=== PATIENT | male | born 1955 | race Caucasian/White ===

== ENCOUNTER 2021-10-25 09:34 | Emergency (ER) | payer BC, SELFPAY ==
--- NOTE | ~2021-10-25 | XR_ITS ---
EXAMINATION: XR foot RT min 3V DATE: 10/25/2021 09:56 INDICATION: Right foot pain TECHNIQUE: Dorsoplantar, lateral, and 2 oblique views of the right foot were obtained. COMPARISON: None. FINDINGS: Bone alignment is normal. There is no fracture. Heterotopic ossification projecting lateral to the calcaneus likely reflects an accessory ossicle. 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 The soft tissues are unremarkable. Posterior and plantar calcaneal enthesophytes are noted. IMPRESSION: 1. No acute osseous abnormality. Reviewed, dictated and finalized at location B.
--- NOTE | 2021-10-25 09:38 | ED.LOWEXIN ---
HPI - Extremity Injury (Lower) General Chief Complaint: Extremity Injury, Lower Stated Complaint: Right foot pain Time Seen by Provider: 10/25/21 09:38 Source: patient Mode of arrival: ambulatory Limitations: no limitations History of Present Illness HPI Narrative: Mr. Wesley is a 66-year-old male patient presenting to the clinic today with complaints of right mid lateral foot pain x1 day. He reports he was walking to the car from his granddaughter's soccer game last night and felt pain to the dorsal mid lateral foot. Reports that it felt as though it exploded. He denies any known injury. States he was wearing tennis shoes as he has been mostly wearing sandals over the summer and yesterday was her first day for tennis shoes for him. Related Data Home Medications Medication Instructions Recorded Confirmed amlodipine 10 mg tablet mg 10/25/21 atorvastatin 20 mg tablet mg 10/25/21 famotidine 40 mg tablet mg 10/25/21 fluoxetine 20 mg capsule mg 10/25/21 gabapentin 100 mg capsule mg 10/25/21 insulin glargine U-300 conc 300 unit subcut 10/25/21 unit/mL (3 mL) subcutaneous pen (Toujeo Max U-300 SoloStar) lisinopril 20 tablet 10/25/21 mg-hydrochlorothiazide 12.5 mg tablet metformin 500 mg tablet,extended mg PO 10/25/21 release 24 hr omeprazole 40 mg capsule,delayed mg 10/25/21 release omeprazole 40 mg capsule,delayed mg 10/25/21 release Allergies Allergy/AdvReac Type Severity Reaction Status Date / Time No Known Allergies Allergy Verified 10/25/21 09:50 Review of Systems Review of Systems: Pertinent positives per HPI. Patient denies any fever, chills, rash, headache, visual changes, dizziness, cough, runny nose, sore throat, shortness of breath, chest pain, palpitations, nausea, vomiting, diarrhea, constipation, abdominal pain, or any urinary issues. PMFSH Comments At the time of my signature, I reviewed and agree with the nursing past medical, surgical, social, and family history. There is no relevant family history pertinent to the patient complaint. Exam Narrative: General: Well-developed, well nourished, in no apparent distress Head: Normocephalic, atraumatic. Cardio: Regular rate and rhythm, s1 and s2 normal, no murmur appreciated. Resp: Clear to auscultation bilaterally, no rhonchi, rales, wheezing or rubs. Musculoskeletal: No deformity, tender to palpation over the proximal lateral mid, grossly normal range of motion, muscle strength strong and equal, peripheral pulse strong, no edema, no cyanosis, normal gait and station Course Course Emergency Course: Portions of this record may have been created with voice recognition software. Level of Care: Express Care Visit Vital Signs Vital signs: Vital Signs Temperature 36.0 C L 10/25/21 09:41 Pulse Rate 81 10/25/21 09:41 Respiratory Rate 16 10/25/21 09:41 Blood Pressure 154/77 H 10/25/21 09:41 Pulse Oximetry 98 10/25/21 09:41 Oxygen Delivery Room Air 10/25/21 09:41 Temperature 36.0 C L 10/25/21 09:41 Pulse Rate 81 10/25/21 09:41 Respiratory Rate 16 10/25/21 09:41 Blood Pressure 154/77 H 10/25/21 09:41 Pulse Oximetry 98 10/25/21 09:41 Oxygen Delivery Room Air 10/25/21 09:41 Vital signs reviewed MDM - Extremity Injury (Lower) MDM Narrative Medical decision making narrative: At the time of visit patient is resting comfortably on the exam table x-ray was performed and shows no fracture or malalignment of the right foot. Does have some spurring and arthritis noticed. Supportive measures were discussed with the patient he voiced understanding of discharge instructions and agrees to treatment plan. Imaging Data Radiologist's impression: Close Foot X-Ray (Signed) Marck Jacob - 10/25/21 Launch?[facility] [address] [email or web address] [address] XRay Report Signed Patient: Jonas Wesley : 1955
[2021-10-25 09:41] VITALS: BP 154/77; PULSE 81; RESP 16; TEMP 36; O2SAT 98
== END 2021-10-25 10:21 | disposition home or self-care (01) ==
PROVIDERS: Emergency Provider Nurse Practitioner Family; PCP Hospitalist
DX: M19.071 Primary osteoarthritis, right ankle and foot (principal); M77.31 Calcaneal spur, right foot; E78.00 Pure hypercholesterolemia, unspecified; I10 Essential (primary) hypertension; E11.9 Type 2 diabetes mellitus without complications
CPT/HCPCS: 73630; 99213; G0463